=== PATIENT | male | born 1950 | race Caucasian/White ===

== ENCOUNTER 2018-06-28 12:30 | Emergency (ER) | payer MEDICARE, BC ==
[2018-06-28 13:13] VITALS: BP 124/73
--- NOTE | 2018-06-28 14:57 | UC ---
Throat Pain/Nasal Kurt HPI - HPI Summary HPI Summary: 68-year-old male comes in with a chief complaint of sinusitis symptoms and upper respiratory tract infection symptoms been going on for more than 2 weeks. He feels like his postnasal drip is getting into his chest and he's worried about getting pneumonia. This had pneumonia in the past and he does not feel like it's pneumonia at this time. No recent fevers. Rhinorrhea has color to it. [id number] medications help the symptoms. No wheezing no shortness of breath. - History of Current Complaint Chief Complaint: UCRespiratory Stated Complaint: COUGH Time Seen by Provider: 06/28/18 14:43 Pain Intensity: 7 - Allergies/Home Medications Allergies/Adverse Reactions: Allergies Allergy/AdvReac Type Severity Reaction Status Date / Time amoxicillin [From Augmentin] Allergy Nausea Verified 06/28/18 13:03 clavulanic acid Allergy Nausea Verified 06/28/18 13:03 [From Augmentin] morphine Allergy Agitation Verified 06/28/18 13:03 Home Medications: Home Medications Amlodipine Besylate [Norvasc 10 mg tab] 10 mg PO DAILY 06/28/18 [History Confirmed 06/28/18] Calcium Carbonate [Calcium/C/D] 1,000 mg PO DAILY 06/28/18 [History Confirmed ] Gabapentin CAP(*) [Neurontin 300 CAP(*)] 300 mg PO DAILY 06/28/18 [History Confirmed 06/28/18] Multivitamin [Multivitamins] 1 cap PO DAILY 06/28/18 [History Confirmed 06/28/18 ] Oxycodone HCl 5 mg PO BID PRN 06/28/18 [History Confirmed 06/28/18] Oxycodone HCl [Oxycodone HCl ER] 10 mg PO BID 06/28/18 [History Confirmed ] Psyllium VAIBHAV* [Metamucil VAIBHAV*] 1 pkt PO DAILY 06/28/18 [History Confirmed ] PMH/Surg Hx/FS Hx/Imm Hx Previously Healthy: Yes Cardiovascular History: Hypertension - Surgical History Surgical History: Yes Surgery Procedure, Year, and Place: thyroid nodule biopsy- yesterday - Family History Known Family History: Positive: Non-Contributory - Social History Alcohol Use: None Substance Use Type: Prescribed Smoking Status (MU): Light Every Day Tobacco Smoker Type: Cigarettes Amount Used/How Often: 8-10 cigarettes daily Review of Systems All Other Systems Reviewed And Are Negative: Yes Constitutional: Positive: Negative Skin: Positive: Negative Eyes: Positive: Negative ENT: Positive: Sore Throat, Nasal Discharge, Sinus Congestion Respiratory: Positive: Cough Cardiovascular: Positive: Negative Gastrointestinal: Positive: Negative Motor: Positive: Negative Neurovascular: Positive: Negative Musculoskeletal: Positive: Negative Neurological: Positive: Negative Psychological: Positive: Negative Is Patient Immunocompromised?: No Physical Exam Triage Information Reviewed: Yes Appearance: No Pain Distress, Well-Nourished, Ill-Appearing - mild Vital Signs: Initial Vital Signs Temp 98.9 F 06/28/18 13:08 Pulse 62 06/28/18 13:08 Resp 16 06/28/18 13:08 BP 124/73 06/28/18 13:08 Pulse Ox 99 06/28/18 13:08 Vital Signs Reviewed: Yes Eye Exam: Normal Eyes: Positive: Conjunctiva Clear ENT: Positive: Pharyngeal erythema, Nasal congestion, Nasal drainage, TMs normal Neck exam: Normal Neck: Positive: Supple Respiratory: Positive: Lungs clear, Normal breath sounds, No respiratory distress Cardiovascular: Positive: RRR Musculoskeletal Exam: Normal Musculoskeletal: Positive: Strength Intact, ROM Intact Neurological Exam: Normal Neurological: Positive: Alert, Muscle Tone Normal Psychological Exam: Normal Psychological: Positive: Normal Response To Family, Age Appropriate Behavior Skin Exam: Normal Throat Pain/Nasal Course/Dx - Differential Dx/Diagnosis Provider Diagnosis: Sinusitis Discharge - Sign-Out/Discharge Documenting (check all that apply): Patient Departure All imaging exams completed and their final reports reviewed: No Studies - Discharge Plan Condition: Stable Disposition: HOME Prescriptions: DOXYcycline CAP(*) [DOXYcycline 100MG CAP(*)] 100 mg PO BID #20 cap Patient Education Materials: Sinusitis (ED) Referrals: Dale Zuniga MD [Primary Care Provider] - Additional Instructions: FOLLOW UP WITH YOUR DOCTOR IF NOT COMPLETELY IMPROVED. GET RECHECKED FOR ANY WORSENING OF YOUR CONDITION OR QUESTIONS OR CONCERNS. - Billing Disposition and Condition Condition: STABLE Disposition: Home
== END 2018-06-28 15:05 | disposition home or self-care (01) ==
LOC: UCCORT 12:30
DX: J32.9 Chronic sinusitis, unspecified (principal); I10 Essential (primary) hypertension; F17.210 Nicotine dependence, cigarettes, uncomplicated; Z88.0 Allergy status to penicillin; Z88.5 Allergy status to narcotic agent; Z79.899 Other long term (current) drug therapy
CPT/HCPCS: 99212; G0463

== ENCOUNTER 2018-09-07 16:01 | Emergency (ER) | payer MEDICARE, BC ==
[2018-09-07 16:12] VITALS: BP 137/68
[2018-09-07] MEDS ORDERED: Lidocaine 1% MPF* 2 ML VIAL INJ ONE (16:31)
[2018-09-07] MEDS ORDERED: Triamcinolone Acetonide* 40 MG/ML 1 ML VIAL INTRAARTIC ONE (16:31)
[2018-09-07] MEDS ORDERED: Bupivacaine 0.25% SDV* 30 ML INJ ONE (16:31)
[2018-09-07] MEDS ORDERED: Bupivacaine 0.25% SDV PF* 10 ML VIAL INJ ONE (16:36)
--- NOTE | 2018-09-07 16:50 | UC ---
Shoulder Pain HPI - HPI Summary HPI Summary: Awoke with shoulder pain yesterday. No known trauma. No fevers. Difficulty raising the arm above the shoulder - History of Current Complaint Chief Complaint: UCUpperExtremity Stated Complaint: LT SHOULDER PAIN Time Seen by Provider: 09/07/18 16:22 Hx Obtained From: Patient Onset/Duration: Sudden Onset, Lasting Days - 2, Still Present Timing: Constant Severity Initially: Severe Severity Currently: Severe Pain Intensity: 9 Character: Sharp, Aching, Throbbing Aggravating Factor(s): Flexion, Abduction Alleviating Factor(s): Rest Associated Signs And Symptoms: Positive: Negative Related History: Dominant Hand Right - Allergies/Home Medications Allergies/Adverse Reactions: Allergies Allergy/AdvReac Type Severity Reaction Status Date / Time amoxicillin [From Augmentin] Allergy Nausea Verified 09/07/18 16:12 clavulanic acid Allergy Nausea Verified 09/07/18 16:12 [From Augmentin] morphine Allergy Agitation Verified 09/07/18 16:12 PMH/Surg Hx/FS Hx/Imm Hx Cardiovascular History: Hypertension Respiratory History: COPD - Surgical History Surgical History: Yes Surgery Procedure, Year, and Place: thyroid nodule biopsy- yesterday - Family History Known Family History: Positive: Hypertension, Non-Contributory - Social History Occupation: Retired Lives: With Family Alcohol Use: None Substance Use Type: Prescribed Smoking Status (MU): Light Every Day Tobacco Smoker Type: Cigarettes Amount Used/How Often: 8-10 cigarettes daily Review of Systems All Other Systems Reviewed And Are Negative: Yes Skin: Positive: Bruising - on arms Musculoskeletal: Positive: Arthralgia - left shoulder Is Patient Immunocompromised?: No Physical Exam Triage Information Reviewed: Yes Appearance: Well-Appearing, Well-Nourished, Pain Distress - mild at rest Vital Signs: Initial Vital Signs Temp 99.4 F 09/07/18 16:10 Pulse 64 09/07/18 16:10 Resp 16 09/07/18 16:10 BP 137/68 09/07/18 16:10 Pulse Ox 96 09/07/18 16:10 Vital Signs Reviewed: Yes Eyes: Positive: Conjunctiva Clear Neck exam: Normal Respiratory Exam: Normal Cardiovascular Exam: Normal Musculoskeletal: Positive: Strength Limited @ - left shoulder abduction with pain., ROM Limited @ - flexion abduction left shoudler limited with pain. Neurological Exam: Normal Psychological Exam: Normal Skin Exam: Normal Procedures - Procedure Summary Procedure Summary: Injection left subacromial bursa: Consent and Time out done. Betadine prep. 7cc total, 1 cc kenalog 40, 3 cc each 1% lido and 0.25% bupivicaine injected from a posterior approach with a 22g needle. Good reduction in pain and increased ROM. Shoulder Course/Dx - Differential Dx/Diagnosis Differential Diagnosis/HQI/PQRI: AC Separation, Bursitis, Sprain, Strain Provider Diagnosis: Subacromial bursitis of left shoulder joint Discharge - Sign-Out/Discharge Documenting (check all that apply): Patient Departure All imaging exams completed and their final reports reviewed: No Studies - Discharge Plan Condition: Stable Disposition: HOME Patient Education Materials: Shoulder Bursitis (ED), Cortisone (Injection) Referrals: Dale Zuniga MD [Primary Care Provider] - Additional Instructions: If pain returns you could get physical therapy or an orthopedic referral. - Billing Disposition and Condition Condition: STABLE Disposition: Home
== END 2018-09-07 17:02 | disposition home or self-care (01) ==
LOC: UCCORT 16:01
DX: M75.52 Bursitis of left shoulder (principal); F17.210 Nicotine dependence, cigarettes, uncomplicated; I10 Essential (primary) hypertension; J44.9 Chronic obstructive pulmonary disease, unspecified; Z88.0 Allergy status to penicillin; Z88.5 Allergy status to narcotic agent
CPT/HCPCS: 20605; 99211; G0463; J3301; J3490